=== PATIENT | female | born 1940 | race Caucasian/White ===

== ENCOUNTER 2016-10-02 18:10 | Inpatient (IN) | payer OTHER ==
[~2016-10-02 18:10] MED LIST: Etomidate* 2 MG/ML 20 ML VIAL (40 MG) ONE; Midazolam* 1 MG/ML 10 ML VIAL (10 MG) ONE
[2016-10-02] MEDS ORDERED: NS 0.9% 1000 ML* 2,000 ML IV ONE (18:13)
[2016-10-02] MEDS ORDERED: Aspirin Low Dose CHEW TAB* 81 MG PO ONE (18:13)
[2016-10-02] MEDS ORDERED: Midazolam* 1 MG/ML 5 ML VIAL (5 MG) ONE ×2 (18:20→19:32)
[2016-10-02 18:27] LABS: Hematocrit 42 % (35-47); Hemoglobin 13.2 g/dl (12.0-16.0); Mean Corpuscular HGB Conc 32 g/dl (31-36); Mean Corpuscular Hemoglobin 31 pg (27-31); Mean Corpuscular Volume 96 fL (80-97); Mean Platelet Volume 8 um3 (7.4-10.4); Red Blood Count 4.34 10^6/ul (4.0-5.4); Red Cell Distribution Width 15 % (10.5-15); White Blood Count 9.2 10^3/ul (3.5-10.8)
[2016-10-02 18:28] LABS: Add Diff/Slide Review? Slide Review Added; Comments Flag Yes
[2016-10-02] MEDS ORDERED: Norepinephrine 16MCG/ML IVPRE* 4,000 MCG/250 ML BAG IV ONE ×2 (18:30→20:34)
[2016-10-02 18:44] LABS: Albumin 3.8 g/dL (3.2-5.2); Calcium 9.3 mg/dL (8.6-10.3); EGFR African American 69.7 (>60); EGFR Non-African American 54.2 (>60); Globulin 2.9 g/dL (2-4); Total Bilirubin 0.4 mg/dL (0.2-1.0); Total Protein 6.7 g/dL (6.4-8.9)
[2016-10-02 18:45] LABS: Eosinophils % 1 % (0-6); Immature Granulocytes 7 % (0-9); Metamyelocytes % 1 % (0-2); Neutrophil % 43 % (38-83); RBC Morphology Normal (Normal)
[2016-10-02 18:49] LABS: Potassium 3.9 mmol/L (3.5-5.0)
[2016-10-02 19:10] LABS: FIO2 100; Resp Rate 12; Ventilator Volume 500
[2016-10-02 19:13] LABS: PCO2 Arterial 44 mmHg (35-45)
[2016-10-02 19:29] LABS: T4 5.12 mcg/mL (6.09-12.23); TSH (Thyroid Stimulating Horm) 6.19 mcIU/mL (0.34-5.60)
[2016-10-02] MEDS ORDERED: Sodium Bicarbonate 8.4%* 50 ML SYRINGE ONE (19:33)
[2016-10-02] MEDS ORDERED: Ondansetron INJ* 2 MG/ML VIAL IV PRN (19:43)
[2016-10-02] MEDS ORDERED: Acetaminophen TAB* 325 MG PO PRN (19:43)
[2016-10-02] MEDS ORDERED: Al Hydrox/Mg Hydrox/Simet LIQ* 30 ML UDC PO PRN (19:43)
[2016-10-02] MEDS ORDERED: Midazolam* 1 MG/ML 5 ML VIAL (5 MG) IV PRN (19:45)
[2016-10-02] MEDS ORDERED: fentaNYL* 50 MCG/ML 2 ML VIAL (100 MCG VIAL) IV SLOW PU PRN ×2 (19:45→23:09)
[2016-10-02] MEDS ORDERED: Sodium Bicarbonate 8.4% IV* 50 ML VIAL IV ONE (19:51)
[2016-10-02] MEDS ORDERED: Propofol* 100 ML IV SCH (20:00)
--- NOTE | 2016-10-02 20:03 | RAD ---
INDICATION: Unresponsive COMPARISON: None. TECHNIQUE: Single AP portable view of the chest was obtained. FINDINGS: Image quality is compromised due to the relative inferiority of a portable chest x-ray. The endotracheal tube is located approximately 4.3 cm above the maureen. The tip of the gastric tube is seen below the level of the diaphragm overlying the gastric fundus. The heart and mediastinum exhibit normal size and contour. The pulmonary vasculature is indistinct and mildly engorged. The lungs are grossly clear. There is no evidence of a large pleural effusion. Visualized bones are normal for the patient's age. IMPRESSION: 1. Mildly engorged pulmonary vasculature could be seen in the setting of cardiogenic pulmonary edema. 2. Lines and tubes appear to be appropriately positioned as described above.
[2016-10-02] MEDS ORDERED: EPINEPHrine SYR 0.1 MG/ML* (1:10,000) SYRINGE ONE (20:06)
[2016-10-02] MEDS ORDERED: Amiodarone 150 MG IVPREMIX* 150 MG/100 ML BAG IV ONE (20:18)
[2016-10-02] MEDS ORDERED: Amiodarone 360 MG IVPREMIX* 360 MG/200 ML BAG IV ONE (20:35)
[2016-10-02 20:45] LABS: FIO2 50; Resp Rate 16; Ventilator Volume 500
[2016-10-02 20:46] LABS: Hematocrit 42 % (35-47); Hemoglobin 13.2 g/dl (12.0-16.0); Mean Corpuscular HGB Conc 31 g/dl (31-36); Mean Corpuscular Hemoglobin 30 pg (27-31); Mean Corpuscular Volume 95 fL (80-97); Mean Platelet Volume 8 um3 (7.4-10.4); Red Blood Count 4.46 10^6/ul (4.0-5.4); Red Cell Distribution Width 14 % (10.5-15); White Blood Count 23.8 10^3/ul (3.5-10.8)
--- NOTE | 2016-10-02 20:51 | ED ---
Miguel Antoine Benjamin, scribed for Jose Diallo MD on 10/02/16 at 1838 . Cardiac Resuscitation - HPI Summary HPI Summary: 76yo female BIBA for ABC alert. Pt was dining out at [facility] and choked on food. 911 dispatch called time 17:36, EMS arrived at scene 17:42. ED arrival time 18:05. Per EMS, Heimlich was attempted at scene prior to EMS arrival. Per EMS, pt did have a pulse at scene. Pt was arrived unresponsive, bagged, on air, asystolic, with pulse of 75. Per old EMR records, pt has hx of CVA and left brain aneurysm surgery. LEVEL 5 CAVEAT ABC alert. - History of Current Complaint Stated Complaint: ABC Hx Obtained From: EMS, Medical Records Onset/Duration: Minutes/Hours: - 1735 Arrest Witnessed: Yes Down-time Before Basic Life Support Initiated: Down-time before BLS initiated: - approximately 5 minutes Down-time Before Advanced Life Support Initiated: Down-time before ALS initiated : - approximately 5 minutes - Prehospital Findings Circulation/Rhythm: Asystole Disability/Neurologic: Unresponsive - Prehospital Intervention Airway: Heimlich Maneuver - at scene prior to EMS arrival Breathing: Oxygen-Bag - by EMS - Past Medical History Past Medical History: Unobtainable Due to Extremis, Other: - Per old EMR: CVA, left brain aneurysm surgery - Family History Family History: Unobtainable Due to Extremis - Social History Social History: Unobtainable Due to Extremis - Review of Systems Review of Systems: Unobtainable Due to Extremis Physical Examination - Physical Examination Completion Of Physical Exam Limited Due To: Extremis Procedures - Intubation Intubation Method: orotracheal Tube Size (cm): 7.5 Medications: Versed Breath Sounds after Intubation: equal Intubation Complications: no complications Post Intubation Xray: Yes - ET TUBE IN PLACE Diagnostics - Vital Signs Vital Signs Pulse Resp BP Pulse Ox 10/02/16 19:03 99 118/90 10/02/16 18:48 100 10/02/16 18:23 154 19 73/55 98 - Laboratory Lab Results: Lab Results 10/02/16 10/02/16 10/02/16 Range/Units 18:20 18:20 18:20 WBC 9.2 (3.5-10.8) 10^3/ul RBC 4.34 (4.0-5.4) 10^6/ul Hgb 13.2 (12.0-16.0) g/dl Hct 42 (35-47) % MCV 96 (80-97) fL MCH 31 (27-31) pg MCHC 32 (31-36) g/dl RDW 15 (10.5-15) % Plt Count 298 (150-450) 10^3/ul MPV 8 (7.4-10.4) um3 Immature Gran % (Auto) 7 (0-9) % Neut % (Auto) 50.5 (38-83) % Lymph % (Auto) 39.2 (25-47) % [place] % (Auto) 8.0 (1-9) % Eos % (Auto) 1.6 (0-6) % Baso % (Auto) 0.7 (0-2) % Absolute Neuts (auto) 4.6 (1.5-7.7) 10^3/ul Absolute Lymphs (auto) 3.6 (1.0-4.8) 10^3/ul Absolute Monos (auto) 0.7 (0-0.8) 10^3/ul Absolute Eos (auto) 0.1 (0-0.6) 10^3/ul Absolute Basos (auto) 0.1 (0-0.2) 10^3/ul Absolute Nucleated RBC 0.01 10^3/ul Neutrophils % 43 (38-83) % Band Neutrophils % 6 (0-8) % Lymphocytes % 41 (25-47) % Monocytes % 8 (0-13) % Eosinophils % 1 (0-6) % Metamyelocytes % 1 (0-2) % Nucleated RBC % 0.1 Normal RBC Morphology Normal (Normal) INR (Anticoag Therapy) (0.89-1.11) Patient Temperature ABG pH (7.35-7.45) ABG pCO2 (35-45) mmHg ABG pO2 (80-100) mmHg ABG HCO3 (19-31) mmol/L ABG O2 Saturation (95-98) % ABG Base Excess (-2.0-2.0) Respiration Rate Ventilator Type Vent Mode FiO2 Inspiratory Time PEEP Pressure Support Pressure Control EPAP IPAP BiPAP Sodium 136 (133-145) mmol/L Potassium 3.9 (3.5-5.0) mmol/L Chloride 106 (101-111) mmol/L Carbon Dioxide 15 L (22-32) mmol/L Anion Gap 15 H (2-11) mmol/L BUN 19 (6-24) mg/dL Creatinine 1.00 H (0.51-0.95) mg/dL Est GFR ( Amer) 69.7 (>60) Est GFR (Non-Af Amer) 54.2 (>60) BUN/Creatinine Ratio 19.0 (8-20) Glucose 255 H (70-100) mg/dL Lactic Acid 8.1 H* (0.5-2.0) mmol/L Calcium 9.3 (8.6-10.3) mg/dL Magnesium 2.0 (1.9-2.7) mg/dL Total Bilirubin 0.40 (0.2-1.0) mg/dL AST 62 H (13-39) U/L ALT 65 H (7-52) U/L Alkaline Phosphatase 72 (34-104) U/L Total Creatine Kinase 44 (10-223) U/L CK-MB (CK-2) 1.2 (0.6-6.3) ng/mL Myoglobin 53.0 (14.3-65.8) ng/mL Troponin I 0.00 (<0.04) ng/mL B-Natriuretic Peptide ( - 100) pg/mL Total Protein 6.7 (6.4-8.9) g/dL Albumin 3.8 (3.2-5.2) g/dL Globulin 2.9 (2-4) g/dL Albumin/Globulin Ratio 1.3 (1-3) TSH 6.19 H (0.34-5.60) mcIU/mL Thyroxine (T4) 5.12 L (6.09-12.23) mcg/mL 10/02/16 10/02/16 10/02/16 Range/Units 18:20 18:20 18:55 WBC (3.5-10.8) 10^3/ul RBC (4.0-5.4) 10^6/ul Hgb (12.0-16.0) g/dl Hct (35-47) % MCV (80-97) fL MCH (27-31) pg MCHC (31-36) g/dl RDW (10.5-15) % Plt Count (150-450) 10^3/ul MPV (7.4-10.4) um3 Immature Gran % (Auto) (0-9) % Neut % (Auto) (38-83) % Lymph % (Auto) (25-47) % [place] % (Auto) (1-9) % Eos % (Auto) (0-6) % Baso % (Auto) (0-2) % Absolute Neuts (auto) (1.5-7.7) 10^3/ul Absolute Lymphs (auto) (1.0-4.8) 10^3/ul Absolute Monos (auto) (0-0.8) 10^3/ul Absolute Eos (auto) (0-0.6) 10^3/ul Absolute Basos (auto) (0-0.2) 10^3/ul Absolute Nucleated RBC 10^3/ul Neutrophils % (38-83) % Band Neutrophils % (0-8) % Lymphocytes % (25-47) % Monocytes % (0-13) % Eosinophils % (0-6) % Metamyelocytes % (0-2) % Nucleated RBC % Normal RBC Morphology (Normal) INR (Anticoag Therapy) 0.96 (0.89-1.11) Patient Temperature Not Reportable ABG pH 7.13 L* (7.35-7.45) ABG pCO2 44 (35-45) mmHg ABG pO2 276 H (80-100) mmHg ABG HCO3 14.0 L (19-31) mmol/L ABG O2 Saturation 99.7 H (95-98) % ABG Base Excess -14.0 L (-2.0-2.0) Respiration Rate 12 Ventilator Type 500 Vent Mode cmv FiO2 100 Inspiratory Time Not Reportable PEEP 5 Pressure Support Not Reportable Pressure Control Not Reportable EPAP Not Reportable IPAP Not Reportable BiPAP Not Reportable Sodium (133-145) mmol/L Potassium (3.5-5.0) mmol/L Chloride (101-111) mmol/L Carbon Dioxide (22-32) mmol/L Anion Gap (2-11) mmol/L BUN (6-24) mg/dL Creatinine (0.51-0.95) mg/dL Est GFR ( Amer) (>60) Est GFR (Non-Af Amer) (>60) BUN/Creatinine Ratio (8-20) Glucose (70-100) mg/dL Lactic Acid (0.5-2.0) mmol/L Calcium (8.6-10.3) mg/dL Magnesium (1.9-2.7) mg/dL Total Bilirubin (0.2-1.0) mg/dL AST (13-39) U/L ALT (7-52) U/L Alkaline Phosphatase (34-104) U/L Total Creatine Kinase (10-223) U/L CK-MB (CK-2) (0.6-6.3) ng/mL Myoglobin (14.3-65.8) ng/mL Troponin I (<0.04) ng/mL B-Natriuretic Peptide 66 ( - 100) pg/mL Total Protein (6.4-8.9) g/dL Albumin (3.2-5.2) g/dL Globulin (2-4) g/dL Albumin/Globulin Ratio (1-3) TSH (0.34-5.60) mcIU/mL Thyroxine (T4) (6.09-12.23) mcg/mL Result Diagrams: 10/02/16 20:20 10/02/16 18:20 Lab Statement: Any lab studies that have been ordered have been reviewed, and results considered in the medical decision making process. - Radiology CXR Xray Interpretation: Positive (See Comments) - IMPRESSION: 1. Mildly engorged pulmonary vasculature could be seen in the setting of cardiogenic pulmonary edema. 2. Lines and tubes appear to be appropriately positioned as described above. Radiology Interpretation Completed By: Radiologist - EKG 1810. Cardiac Rate: Tachycardia - 156bpm EKG Rhythm: Atrial Fibrillation - rapid atrial fibrillation Cardiac Resus. Course/Dx - Course Course Of Treatment: PATIENT HAD NON REACTIVE PUPILS AND WAS NON RESPONSIVE TO VOICE UPON ARRIVAL. GCS 6. INTUBATED WITH 7.5 ET TUBE BY MYSELF. AMIODORONE 150MG IV GIVEN DUE TO RAPID AFIB. LOW BPS PERSISTED. TREATMENT CONSISTED OF IVF AND LEVOPHED. SEDATION MAINTAINED WITH VERSED OR DIPROVAN. DISCUSSED WITH FAMILY. CENTRAL LINE PLACED BY DR MURRAY. ADMITTED TO HOSPITALIST IN CRITICAL CONDITION. - Diagnoses Provider Diagnoses: CARDIAC ARREST CHOKING EPISODE RECOVERY - Critical Care Time Critical Care Time: 30-74 min Discharge - Discharge Plan Condition: Critical Disposition: ADMITTED TO [facility] The documentation as recorded by the Miguel glass Benjamin accurately reflects the service I personally performed and the decisions made by me, Jose Diallo MD.
[2016-10-02 20:54] LABS: PCO2 Arterial 60 mmHg (35-45)
[2016-10-02 20:57] LABS: BUN/Creatinine Ratio 19.5 (8-20); Calcium 8.1 mg/dL (8.6-10.3); EGFR African American 81.9 (>60); EGFR Non-African American 63.6 (>60); Phosphorus 2.4 mg/dL (2.5-5.0); Potassium 3.2 mmol/L (3.5-5.0)
[2016-10-02 21:00] LABS: Troponin I 0.03 ng/mL (<0.04)
--- NOTE | 2016-10-02 21:10 | RAD ---
INDICATION: Adjustment of endotracheal tube COMPARISON: Similar chest x-ray acquired at 1837 hours TECHNIQUE: Single AP portable view of the chest was obtained at 1936 hours. FINDINGS: Image quality is compromised due to the relative inferiority of a portable chest x-ray. The endotracheal tube is again seen measuring approximately 4.6 cm above the maureen. The gastric tube that was previously identified at the level of the gastric fundus now overlies the right of midline lower mediastinum. There is been worsening reticulonodular density overlying the bilateral lungs more severely affecting the left lung and the right. The pulmonary vasculature continues to appear engorged and indistinct. IMPRESSION: 1. The gastric tube tip is now seen at the right of midline lower mediastinum above the diaphragm, previously below the diaphragm overlying the gastric fundus. I recommend advancing the gastric tube at least 15 cm and correlating to gastric auscultation. 2. Appearance consisting with worsening pulmonary edema relative to the previous chest x-ray with persistent vascular engorgement.
[2016-10-02] MEDS ORDERED: fentaNYL* 50 MCG/ML 2 ML VIAL (100 MCG VIAL) ONE (22:25)
[2016-10-02] MEDS ORDERED: Albumin Human 5%* 250 ML BTL IV ONE (22:44)
[2016-10-02] MEDS: Norepinephrine 16MCG/ML IVPRE* 4,000 MCG/250 ML BAG IV SCH (22:44)
[2016-10-02] MEDS: Albumin Human 5%* 250 ML BTL IV SCH (22:45)
[2016-10-02] MEDS ORDERED: fentaNYL* 50 MCG/ML 2 ML VIAL (100 MCG VIAL) IV SLOW PU ONE (23:04)
[2016-10-02] MEDS: Magnesium Sulf 4 GM/100 ML IV* 4,000 MG/100 ML BAG IVPB ONE (23:13)
[2016-10-02] MEDS ORDERED: Acetaminophen IV 1GM/100ML * 1,000 MG in PREMIX* 100 ML IVPB ONE (23:23)
[2016-10-02] MEDS ORDERED: Acetaminophen IV 1GM/100ML * 1,000 MG in PREMIX* 0 ML IVPB ONE (23:23)
--- NOTE | 2016-10-02 23:29 | CONSULT ---
Consult Consult: CRITICAL CARE MEDICINE DATE: 10/02/16 TIME: 2229 REFERRING PROVIDER: Pierce REASON/CHIEF COMPLAINT: [facility]CA HISTORY OF PRESENT ILLNESS: 76 F with h/o cerebral aneurysm s/[facility] with only residual Left hemiparasthesia, HTN who was at dinner and started choking. [place] choking sign and staffing rn attempted Heimlich. Pt "passed out" according to family and lower to the floor on EMS arrival. CPR initialed. Food removed orally and then advance airway placed. ROSC at scene. In ED pt with myoclonus and coma. Admitted to ICU. Resuscitation efforts continued with escalating levophed. bicarb given. noted afib rvr. amio given. vent adjusted but pt with subsequent pea arrest. ROSC in 8 min with ACLS. Adjustments made. REVIEW OF SYSTEMS: As per HPI. Recent cellulitis on abx maybe a month ago, otherwise neg. PAST MEDICAL HISTORY: As per HPI. MEDICATIONS: Reviewed but unconfirmed. ALLERGIES: NKDA SOCIAL HISTORY: Reviewed. . FAMILY HISTORY: Noncontributory at present. PHYSICAL EXAM: Vital Signs: Reviewed. Afib with HR 90-110. levo at 40. Neurologic: coma. pupils eq and sluggish but reactive 4mm to 2mm. +corneals. + cough. no gag at time. myoclonus bl HEENT: ett in place with brownish secretions. Cardiovascular: distant, irr, irr, no m Respiratory: coarse bl with mild rales Abdomen: obese, doft, no masses Extremities: cool but not cold, not cyanotic Access: R fem tlc LABS: Reviewed. IMAGING: Reviewed. MEDICATIONS: Reviewed. ASSESSMENT: 76 F OHCA after witnessed choking. Post cardiac arrest coma syndrome Acute hypoxic resp failure Cardiogenic shock post hypoxia Acute pulm edema post arrest Acute aspiration pneumonitis Lactic acidosis Impending components of atn and ischemic hepatitis post shock PLAN: Initial plan for euthermia, however pt still with considerable encephalopathy and myoclonus and given her acute onset of hypoxic illness and PEA, with ROSC and seeming end organ improving balance, with temp on ext cooling measures already climbing and now 36.5C, with all her concerns, we feel it is in her best to aim for the best public health informatician score and hopeful recovery with TTM of 33C for 24hours and then slow rewarming and reanimation. place internal catheter for this purpose. D/w with family at bedside. HOB >30degrees. Neurologic: sedation with propofol. try to limit myoclonus with keppra as well and continued both. prn fent. limit fever as above and avoid cytokine rebound. IV tylenol if needed. trying to avoid paralytics but follow shivering. eval in am for eeg benefits. Cardiovascular: Better perfusion state now with calming of cardiac outpt needs, and again reasons for decreasing her o2 consumption as above. Can eval with echo tomorrow. Afib is calming with less sympathetic needs now too. on amio and can hold off. hopefully spont conversion. maintain with levophed and target MAP >70 currently. Respiratory: Adjusted to APRV now. wean O2 to maintain sat >94%. f/u abgs. at risk for lung injury post aspiration and cpr. f/u cxr in am. lung protection. No indications for bronch needs. Gastrointestinal: NPO currently; sup. f/u lfts. Renal/Metabolic: watch for atn. volume resuscitation ongoing. keep NA high end but will try to avoid Cl acidosis but there will be a component. f/u clearance. Infectious Disease: given a dose zosyn in ED. Can hold off on further currently , however low thereshold given plans for ttm 33C. Hematology: f/u counts and coags with dynamics. hsq. Endocrine: given her dyanmics and some benefits in this setting from steroids, will give stress dose given her levo needs as well. Musculoskeletal: progressive mobility when condition permits, avoid skin breakdown. Psych/Social: family updated at length Supportive and preventative care as ordered. SUP: ppi VTE prophylaxis: heparin Rivera catheter given critical illness, monitoring needs for accurate assessment of KATARINA and KDIGO criteria for critically ill patients and to avoid potential harms of urinary retention, skin breakdown/ulcers. Disposition: ICU Code Status: Full Critical Care Time: 75min ([id number]), exl procedures FLisa Hess DO
[2016-10-02] MEDS ORDERED: levETIRAcetam 500 MG IVPREMIX* 500 MG/100 ML BAG IV ONE (23:45)
--- NOTE | 2016-10-03 00:05 | HP ---
CC: Dr. Gibson, [facility] * HISTORY AND PHYSICAL: DATE OF ADMISSION: 10/02/16 TIME OF EVALUATION: 1929. PRIMARY CARE PHYSICIAN: Dr. Gibsno at [facility]. CHIEF COMPLAINT: Cardiac arrest. HISTORY OF PRESENT ILLNESS: This is a 76-year-old female with past medical history of a CVA, who presented to the emergency room via EMS after having a choking episode at [facility]. Per story from ER is that the patient choked on her steak at [facility]. They were unsuccessful at the [facility]. EMS was called, CPR began. The patient was pulseless for 5 minutes prior to EMS arrival. EMS was able to get some meat out. She began having spontaneous respirations. When she arrived to the emergency room, the ER staff said her eyes were open and she was unresponsive. She had sonorous breath sounds. At that point, they tubed her. She went into rapid AFib and became hypotensive. She was given amiodarone bolus, several liters of normal saline and started on Levophed. She was promptly brought up to the ICU. On arrival to the ICU, she was having myoclonic jerking, which did respond to Versed. She received several more amps of bicarb. Shortly after arrival to the ICU patient went into asystole and CPR was resumed. The patient received epi and more bicarb. Subsequently went into PEA and about 7 to 8 minutes later, she had a return of spontaneous circulation. She remained in AFib with a lot of ectopy, and an Amiodarone drip was started, and she was continued on Levophed drip. She is still having intermittent myoclonic jerking episodes. Her , Florin, her [id number], family friends, roma are all in the waiting room and at the bedside during the cardiac arrest and have been updated frequently of her critical condition. Dr. Hess has been updated frequently as well. Otherwise , unable to obtain a review of systems due to the patient being unresponsive. PAST MEDICAL HISTORY: 1. is not entirely clear on her medical history, states that she did have 2 strokes in the past with residual left-sided paresthesias. 2. History of hypertension. MEDICATIONS: Unknown. ALLERGIES: Unknown. FAMILY HISTORY: Unable to be obtained. SOCIAL HISTORY: Per the family, patient ambulates independently. 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. She lives with her . She has a daughter a physical therapist, who is in [place], who is currently on her way here. She quit smoking 2 months ago. At that time, she was smoking about a pack per week. Occasional alcohol use. Code status is full code. When asked who the designated healthcare proxy is, they were unsure. They thought it would the and the daughter, Dania, who will be arriving here shortly. REVIEW OF SYSTEMS: Unable to obtain due to the patient being unresponsive. PHYSICAL EXAMINATION GENERAL: The patient unresponsive with intermittent myoclonic jerking. VITAL SIGNS: Temp is 35, pulse rate 99, respiratory rate on the vent is 16, oxygen saturation is 100% on mechanical ventilation, blood pressure 118/90. HEENT: The patient with resolved epistaxis bilaterally. Oropharynx: ET tube is in place. Head normocephalic. Pupils are 2 mm and sluggish. No corneal reflex. NECK: Supple. RESPIRATORY: Diminished breath sounds. No wheezing, rhonchi, or rales. CARDIAC: Irregular rate and rhythm. Soft systolic murmur heard. ABDOMEN: Mildly firm, nondistended. EXTREMITIES: Extremities are cool. No edema. +1 DPs bilaterally. NEUROLOGIC: The patient is unresponsive. As mentioned, no corneal reflex. No spontaneous movement of her extremities. DIAGNOSTIC STUDIES/LAB DATA: White count 9.2, hemoglobin 13.2, hematocrit 42, platelets 298. INR 0.96. Blood gas shortly after getting intubated is pH of 7.13, pCO2 44, pO2 of 276. Sodium 136, potassium 3.9, chloride 106, bicarb 15, BUN 19, creatinine 1, glucose 255, lactic acid 8, AST 62, ALT 65. Troponin of 0. TSH 6.19, T4 5.12. Chest x-ray showed mildly engorged pulmonary vasculature, could be seen in the setting of cardiogenic pulmonary edema. Lines and tubes appear to be appropriately positioned as described. EKG shows rapid atrial fibrillation. Repeat EKG post code shows ST depression. ASSESSMENT: This is a 76-year-old female with a past medical history of cerebrovascular accident, who was independent of her ADLs when she had a choking episode at the [employer] when she became unresponsive, unsuccessful with Heimlich, and was down for 5 minutes prior to EMS arrival. After they did get the meat out, she was tubed upon arrival to the ED. In the ICU. patient subsequently had an asystolic cardiac arrest, return of spontaneous circulation after about 7 to 8 minutes. I spoke with Dr. Hess several times regarding management for this patient. The goal is to keep her temperature less than 36. We will keep her on Levophed and continue aggressive IV fluid hydration. We will continue giving her bicarb and follow her venous pH. Continue propofol, Versed, and fentanyl as needed. We will give a gram of Keppra. If she becomes more stable, we will do a head CT. I am awaiting repeat labs post cardiac arrest and repeat chest x-ray. The family has been routinely updated. They are aware that she may not survive and she has likely suffered significant hypoxic brain injury. The family understands, they are waiting for the daughter to arrive and I will update her as well when she arrives. PATIENT TIME: Greater than 120 minutes were spent during the history and physical, more than half the time was spent in direct patient contact. This was a critical care time in the setting of critically ill patient. [id number]/[facility] #: [id number] ANGELO
[2016-10-03] MEDS: Propofol* 100 ML IV SCH ×8 (00:26→21:39)
[2016-10-03] MEDS: Norepinephrine 16MCG/ML IVPRE* 4,000 MCG/250 ML BAG IV SCH ×5 (00:37→19:24)
[2016-10-03] MEDS: Albumin Human 5%* 250 ML BTL IV SCH ×3 (01:10→02:14)
[2016-10-03 01:24] LABS: Hematocrit 40 % (35-47); Hemoglobin 12.9 g/dl (12.0-16.0); Mean Corpuscular HGB Conc 32 g/dl (31-36); Mean Corpuscular Hemoglobin 30 pg (27-31); Mean Corpuscular Volume 95 fL (80-97); Mean Platelet Volume 9 um3 (7.4-10.4); Red Blood Count 4.25 10^6/ul (4.0-5.4); Red Cell Distribution Width 14 % (10.5-15); White Blood Count 14.4 10^3/ul (3.5-10.8)
--- NOTE | 2016-10-03 01:24 | PN ---
Progress Note - Progress Note Date of Service: 10/03/16 Note: CRITICAL CARE MEDICINE PROCEDURE NOTE DATE: 10/03/16 TIME: 0005 SERVICE: Critical Care Medicine LOCATION OF PROCEDURE: ICU PROCEDURE: ICY catheter Central line insertion PROCEDURALIST: Dr. Hess Consent obtain: Yes Time out held: Yes INDICATION: Post cardiac arrest coma syndrome and need for TTM 33C PROCEDURE: Oxygenation maintained and vitals monitored. Patient in supine position. SITE: LEFT Femoral (Right femoral with TLC in use) Site preparation with chlorhexidine locally. Full sterile drape, gown, hat, mask, gloves. 4ml 1% Lidocaine utilized at insertion site. Standard sterile Seldinger technique utilized via ultrasound guidance]and catheter was inserted to 35cm and sutured in place. Good blood return from all three ports. Minimal blood loss, but some oozing around catheter. Site dressed with tegaderm. Patient otherwise tolerated well. Frida Hess, DO
[2016-10-03 01:26] LABS: Add Diff/Slide Review? Slide Review Added; Comments Flag Yes
--- NOTE | 2016-10-03 01:26 | PN ---
Progress Note - Progress Note Date of Service: 10/03/16 Note: CRITICAL CARE MEDICINE PROCEDURE NOTE DATE: 10/03/16 TIME: 24 SERVICE: Critical Care Medicine LOCATION OF PROCEDURE: ICU PROCEDURE: ICY catheter Central line insertion PROCEDURALIST: Dr. Hess Consent obtain: Yes Time out held: Yes INDICATION: Post cardiac arrest coma syndrome, cardiogenic shock needing hemodyanmic monitoring. PROCEDURE: Oxygenation maintained and vitals monitored. Patient in supine position. SITE: LEFT Femoral artery Site preparation with chlorhexidine locally. Full sterile drape, gown, hat, mask, gloves. 3ml 1% Lidocaine utilized at insertion site. Standard sterile Seldinger technique utilized via ultrasound guidance, 2 sticks required, and then catheter was inserted to 15cm and sutured in place. Good blood return and wave form. Minimal blood loss. Site dressed with tegaderm. Patient otherwise tolerated well. Frida Hess DO
[2016-10-03 01:35] LABS: Albumin 3.4 g/dL (3.2-5.2); BUN/Creatinine Ratio 20.5 (8-20); Calcium 7.4 mg/dL (8.6-10.3); EGFR African American 80.8 (>60); EGFR Non-African American 62.8 (>60); Globulin 2.2 g/dL (2-4); Potassium 3.5 mmol/L (3.5-5.0); Total Bilirubin 0.6 mg/dL (0.2-1.0); Total Protein 5.6 g/dL (6.4-8.9)
[2016-10-03 01:43] LABS: Venous Bicarbonate HCO3 18.4 mmol/L (24-28)
[2016-10-03] MEDS ORDERED: fentaNYL* 50 MCG/ML 2 ML VIAL (100 MCG VIAL) IV SLOW PU ONE (02:00)
[2016-10-03 02:01] LABS: PCO2 Arterial 37 mmHg (35-45)
[2016-10-03] MEDS: fentaNYL PCA* 20 ML PCA SCH ×2 (02:15→10:00)
[2016-10-03] MEDS: NS 0.9% 1000 ML* 1,000 ML IV SCH ×4 (02:19→19:25)
[2016-10-03] MEDS: Heparin VIAL(*) 5000 UNITS/ML VIAL (FIVE THOUSAND) SUBCUT SCH ×4 (02:24→22:00)
[2016-10-03] MEDS: Magnesium Sulf 4 GM/100 ML IV* 4,000 MG/100 ML BAG IVPB ONE (02:27)
[2016-10-03] MEDS: Chlorhexidine MOUTHWASH 0.12%* 15 ML UDC TOPICAL SCH ×6 (02:29→20:16)
[2016-10-03] MEDS ORDERED: Perflutren Lipid Microsphere* 3 ML VIAL ONE (07:45)
--- NOTE | 2016-10-03 08:11 | ED ---
Giulia Antoine Alfonso, scribed for Mc Rodriguez MD on 10/02/16 at 1908 . Progress - Progress Note Progress Note: I was asked by Dr. Diallo to place a central line. Central Line Placement Procedure note: Procedure Note: Central Venous Catheter Insertion- Right Femoral vein Indication: Hypotension [place] Protocol: a timeout was performed and the correct patient and site were verified Consent: Obtained The patient was placed in Trendelenburg. Patient and all elements of maximal sterile barrier technique (MSBT) were used. Anesthesia was obtained with local infiltration of 3 ml 1% lidocaine. Hand hygiene was performed prior to procedure. Chlorhexidine used to prep the skin and dried for 2 minutes prior to skin puncture. Traffic was limited during the procedure. Full barrier precaution utilized. A 7 khmer triple lumen catheter was placed using the Seldinger technique. All lines flushed and nancy nonpulsatile dark venous blood appropriately. The line was secured with sutures. A biopatch and dressing was placed over the site. The patient tolerated the procedure well. A post-line CXR was reviewed demonstrating the tip of the catheter in the SVC. Post-Procedure Diagnosis: Hypotension Complications: none Estimated Blood Loss: minimal Course/Dx - Diagnoses Provider Diagnoses: CARDIAC ARREST CHOKING EPISODE RECOVERY The documentation as recorded by the Giulia glass Alfonso accurately reflects the service I personally performed and the decisions made by Michael negrete Walter, MD.
[2016-10-03 08:27] LABS: Patient Temp ABG 33.3
[2016-10-03 08:31] LABS: PCO2 Arterial 30 mmHg (35-45)
[2016-10-03] MEDS ORDERED: Acetaminophen IV 1GM/100ML * 1,000 MG in PREMIX* 0 ML IVPB ONE (09:00)
[2016-10-03 09:09] LABS: Hematocrit 36 % (35-47); Hemoglobin 11.6 g/dl (12.0-16.0); Mean Corpuscular HGB Conc 32 g/dl (31-36); Mean Corpuscular Hemoglobin 30 pg (27-31); Mean Corpuscular Volume 94 fL (80-97); Mean Platelet Volume 8 um3 (7.4-10.4); Red Blood Count 3.87 10^6/ul (4.0-5.4); Red Cell Distribution Width 15 % (10.5-15); White Blood Count 11.9 10^3/ul (3.5-10.8)
[2016-10-03 09:26] LABS: BUN/Creatinine Ratio 18.9 (8-20); Calcium 7.6 mg/dL (8.6-10.3); EGFR Non-African American 57.5 (>60); Magnesium 2.3 mg/dL (1.9-2.7); Phosphorus 1.2 mg/dL (2.5-5.0); Potassium 3.2 mmol/L (3.5-5.0)
[2016-10-03 09:28] LABS: Troponin I 0.32 ng/mL (<0.04)
[2016-10-03] MEDS ORDERED: fentaNYL PCA* 20 ML PCA SCH (09:50)
[2016-10-03] MEDS ORDERED: Dextrose 50% Syringe 50 ML* 25 GM/50 ML SYRINGE IV PUSH PRN (09:57)
[2016-10-03] MEDS ORDERED: fentaNYL PCA* 20 ML ONE (09:58)
--- NOTE | 2016-10-03 10:09 | ECHO ---
Patient: ANGELA ALEXANDER [facility] Rec#: [id number] : 1940 Date: 10/03/2016 Age: 76y Height: 165.1 cm / 65.0 in Weight: 114.76 kg / 252.9 lbs Sex: F BSA: 2.19 Room#: ICU 8 Admit Date#: 10/02/2016 Type: Inpatient Referring: Krishan Hess Reading: Tresa Garay MD Putty Patcher: Rolanda HillRD,RDMS Transthoracic Echocardiogram Indication: Cardiac arrest BP: 118/67 HR: 40 Rhythm: Bradycardia Findings History: CVA, HTN, former smoker Technical Comments: The study is technically limited due to patient body habitus. The study is technically limited due to patient being intubated and on a ventilator. Completed 0940 Left Ventricle: The left ventricular chamber size is normal. Mild concentric left ventricular hypertrophy is observed. The estimated ejection fraction is 40-45%. Abnormal left ventricular diastolic filling is observed, consistent with impaired relaxation. Left Atrium: The left atrial chamber size is normal. Right Ventricle: The right ventricular cavity size is normal. The right ventricular global systolic function is moderately reduced.Definity imaging suggests severe RV dysfunction. Right Atrium: The right atrial cavity size is normal. Aortic Valve: There is no evidence of aortic valve thickening. Systolic excursion of the aortic valve is normal. There is a trace of aortic regurgitation. There is no evidence of aortic stenosis. Mitral Valve: The mitral valve leaflets appear normal. There is trace to mild mitral regurgitation. There is no evidence of mitral stenosis. Tricuspid Valve: The tricuspid valve leaflets are not thickened. There is trace tricuspid regurgitation. There is evidence of mild pulmonary hypertension. Pulmonic Valve: The pulmonic valve structure is not well visualized. Pericardium: There is no significant pericardial effusion. Aorta: The ascending aorta is not well visualized. The aortic arch is not well visualized. The aortic root is normal in size. Pulmonary Artery: The main pulmonary artery is not well visualized. Venous: Unable to accurately comment on the size collapsibility of the IVC as the patient in known to be on mechanical ventilation. Contrast: Definity was used to optimize study. A total of 3 ml was used Conclusions The study is technically limited due to patient body habitus and the patient is ventilated. Mild concentric left ventricular hypertrophy. The estimated ejection fraction is 40-45%, septum appears dyskinetic. Abnormal left ventricular diastolic filling is observed, consistent with impaired relaxation. The right ventricular global systolic function is moderately to severely reduced. There is a trace of aortic regurgitation. There is trace to mild mitral regurgitation. There is trace tricuspid regurgitation. There is evidence of mild pulmonary hypertension: 37 mmHg. No prior echo to compare. Measurements Name Value Normal Range RVDdMajor (2D) 2.8 cm (2.2 - 4.4) RAd ISD 4CH 3.7 cm (3.4 - 4.9) RA (A4C)W 2.9 cm (2.9 - 4.6) IVSd (2D) 1.3 cm (0.6 - 1) LVPWd (2D) 1.3 cm (0.6 - 1) LVIDd (2D) 3.3 cm (3.6 - 5.4) LVIDs (2D) 2.8 cm - Aortic Annulus 2.2 cm (1.4 - 2.6) Ao root diameter (2D) 3.2 cm (2.1 - 3.5) LAd ISD 4CH 5.1 cm (2.9 - 5.3) LA ISD 4CH W 4.5 cm (2.5 - 4.5) Name Value Normal Range LA ESV SP 4CH (A/L) 58.33 ml - LA ESV SP 4CH (MOD) 46.1 ml - Name Value Normal Range MV E-wave Vmax 0.5 m/sec - MV deceleration time 184 msec - MV A-wave Vmax 0.6 m/sec - MV E:A ratio 0.8 ratio - LV septal e' Vmax 0.04 m/sec - LV lateral e' Vmax 0.03 m/sec - LV E:e' septal ratio 12.5 ratio - LV E:e' lateral ratio 17 ratio - Name Value Normal Range AV Vmax 0.8 m/sec - AV VTI 26 cm - AV peak gradient 2.6 mmHg - AV mean gradient 1.7 mmHg - LVOT Vmax 0.7 m/sec - LVOT VTI 16.5 cm - LVOT peak gradient 2 mmHg - LVOT mean gradient 0.9 mmHg - Name Value Normal Range TR Vmax 2.7 m/sec - TR peak gradient 29 mmHg - RAP 8 mmHg - RVSP 37 mmHg - IVC diameter 2.8 cm -
[2016-10-03] MEDS ORDERED: Potassium Phosphate IV* 30 MMOLE in NS 0.9% 250 ML* 250 ML IVPB ONE (10:30)
--- NOTE | 2016-10-03 10:44 | PN ---
Progress Note - Progress Note Date of Service: 10/03/16 Note: CRITICAL CARE MEDICINE DATE: 10/03/16 TIME: 930 SUBJECTIVE: Patient seen and examined. PHYSICAL EXAM: Vital Signs: Reviewed. HR SB 40s. levo at 12. aprv Fio2 40% Neurologic: coma. pupils eq small 2mm sluggish to 1mm. neg corneals. neg cough , gag at time. no myoclonus HEENT: ett in place Cardiovascular: distant, reg Respiratory: coarse bl, aprv Abdomen: obese, soft, no masses Extremities: cool, no cyanotic Access: R fem tlc; left paola, icy cath LABS: Reviewed. IMAGING: Reviewed. MEDICATIONS: Reviewed. ASSESSMENT: 76 F OHCA after witnessed choking. Post cardiac arrest coma syndrome Acute hypoxic resp failure Cardiogenic shock post hypoxia Acute pulm edema post arrest Acute aspiration pneumonitis Lactic acidosis mild components of atn and ischemic hepatitis post shock PLAN: Neurologic: TTM 33C for 24h and slow rewarm. dec propofol slightly. no myoclonus. on keppra. spot eeg today. time. Cardiovascular: Better perfusion. keep ivf but less today. wean levophed with target MAP >70. mild troponin sec to demand. echo pending today Respiratory: Better with APRV; wean O2 to maintain sat >94%. abgs improved. cxr pending. lung protection. Gastrointestinal: NPO currently; sup. change to ogt. perhaps trophic feeds later today or at least dolores. Renal/Metabolic: Uout low but holding. f/u out. replete phos. k ok. Infectious Disease: no abx needs currently Hematology: counts and coags stable. hsq. Endocrine: stress dose steroids. Musculoskeletal: progressive mobility; avoid skin breakdown. Psych/Social: family updated at length Supportive and preventative care as ordered. SUP: ppi VTE prophylaxis: heparin Rivera catheter given critical illness, monitoring needs for accurate assessment of KATARINA and KDIGO criteria for critically ill patients and to avoid potential harms of urinary retention, skin breakdown/ulcers. Disposition: ICU Code Status: Full Critical Care Time: 60min Frida Hess DO
[2016-10-03] MEDS: Hydrocortisone INJ* 100 MG VIAL IV SCH ×2 (10:59→19:07)
[2016-10-03] MEDS: Insulin LISPRO* 1 UNITS UNIT SUBCUT SCH ×2 (13:20→19:05)
[2016-10-03] MEDS: Lansoprazole susp Kit 3 MG/ML (30 MG = 10 ML) G TUBE SCH (13:21)
--- NOTE | 2016-10-03 13:26 | RAD ---
Indication: Respiratory failure. Check orogastric and ET tubes. Comparison: 1936 hours October 02, 2016 Technique: Supine AP 1215 hours Report: Endotracheal tube tip 5.3 cm above the Tamia. Orogastric tube passes to the stomach and outside the [id number] caudally. Cardiomegaly. Prominent ill-defined central pulmonary vasculature with perihilar opacities. Diffuse prominence of interstitial markings. Grossly clear pleural spaces. IMPRESSION: 1. Pulmonary vascular congestion and interstitial edema with mild interval improvement. 2. Endotracheal tube could be advanced approximate 3 cm.
--- NOTE | 2016-10-03 22:14 | EEG ---
ELECTROENCEPHALOGRAPHY: DATE OF STUDY: DATE OF DICTATION: 10/03/16 PATIENT OF: Dr. Hess. CLINICAL PROBLEM: This is a 76-year-old woman being evaluated following a cardiac arrest, following choking with significant hypotension, and has had myoclonic jerks that responds to Versed. She had been asystolic. The patient is intubated and sedated. MEDICATIONS: Include: 1. Propofol drip. 2. Fentanyl drip. 3. She is also on Levophed. 4. Zofran. 5. Versed. 6. Maalox. 7. Keppra. 8. Humalog. 9. Hydrocortisone. 10. Lansoprazole. REPORT: Background cerebral activity consists of [id number] amplitude, primarily beta activity, but some admixed alpha, delta, and theta frequencies. Some generalized sharp and slow waves are noted that are not clearly associated with muscle movement artifact and occur in brief runs of up to a second with frequency ranging up to 4 to 5 Hz. Some of these bursts may be secondary to muscle artifact, but some are not clearly associated with muscle artifact. No focal abnormalities or major asymmetries of background are present. CLINICAL IMPRESSION: This sedated EEG is abnormal because of the presence of generalized discharges suggestive of a tendency towards generalized seizures may be secondary to the hypoxic ischemic insult this patient has had. Background has both beta activity, which may be secondary to medications the patient is receiving. The slowing that is noted on tracing may be secondary to medications or secondary to an underlying hypoxic ischemic insult. [id number]/[facility] #: [id number] [facility]
[2016-10-04] MEDS: Insulin LISPRO* 1 UNITS UNIT SUBCUT SCH ×5 (00:03→23:42)
[2016-10-04] MEDS: Chlorhexidine MOUTHWASH 0.12%* 15 ML UDC TOPICAL SCH ×7 (00:04→23:42)
[2016-10-04] MEDS: Propofol* 100 ML IV SCH ×7 (00:39→22:15)
[2016-10-04] MEDS: Hydrocortisone INJ* 100 MG VIAL IV SCH ×3 (01:52→18:26)
[2016-10-04] MEDS: NS 0.9% 1000 ML* 1,000 ML IV SCH (03:35)
[2016-10-04] MEDS: Heparin VIAL(*) 5000 UNITS/ML VIAL (FIVE THOUSAND) SUBCUT SCH ×3 (05:34→21:24)
[2016-10-04 06:05] LABS: FIO2 40
[2016-10-04 06:12] LABS: PCO2 Arterial 32 mmHg (35-45)
[2016-10-04 06:13] LABS: Hematocrit 35 % (35-47); Hemoglobin 11.3 g/dl (12.0-16.0); Mean Corpuscular HGB Conc 32 g/dl (31-36); Mean Corpuscular Hemoglobin 30 pg (27-31); Mean Corpuscular Volume 95 fL (80-97); Mean Platelet Volume 9 um3 (7.4-10.4); Red Blood Count 3.73 10^6/ul (4.0-5.4); Red Cell Distribution Width 15 % (10.5-15); White Blood Count 14.3 10^3/ul (3.5-10.8)
[2016-10-04 06:30] LABS: Albumin 3.1 g/dL (3.2-5.2); BUN/Creatinine Ratio 21.5 (8-20); Calcium 7.5 mg/dL (8.6-10.3); EGFR African American 91.5 (>60); EGFR Non-African American 71.1 (>60); Globulin 1.9 g/dL (2-4); Phosphorus 2.7 mg/dL (2.5-5.0); Potassium 3.8 mmol/L (3.5-5.0)
[2016-10-04] MEDS: Lansoprazole susp Kit 3 MG/ML (30 MG = 10 ML) G TUBE SCH (08:26)
[2016-10-04] MEDS ORDERED: Furosemide IV* 10 MG/ML VIAL (40 MG) IV SLOW PU ONE (10:17)
[2016-10-04] MEDS ORDERED: NS 0.9% 1000 ML* 1,000 ML IV SCH (10:19)
--- NOTE | 2016-10-04 10:54 | PN ---
Progress Note - Progress Note Date of Service: 10/04/16 Note: CRITICAL CARE MEDICINE DATE: 10/04/16 TIME: 1000 SUBJECTIVE: Patient seen and examined. PHYSICAL EXAM: Vital Signs: Reviewed. HR SB 40s. levo at 4. aprv Fio2 40% Neurologic: coma. pupils eq small 2mm sluggish to 1mm. neg corneals. neg cough , gag at time. supraorbital myoclonus HEENT: ett in place Cardiovascular: distant, reg Respiratory: coarse bl, aprv Abdomen: obese, soft, no masses Extremities: cool, +edema Access: R fem tlc; left paola, icy cath LABS: Reviewed. IMAGING: Reviewed. MEDICATIONS: Reviewed. ASSESSMENT: 76 F OHCA after witnessed choking. Post cardiac arrest coma syndrome Acute hypoxic resp failure Cardiogenic shock post hypoxia Acute pulm edema post arrest Acute aspiration pneumonitis Lactic acidosis mild components of atn and ischemic hepatitis post shock PLAN: Neurologic: TTM 35.5-36C today (currently 34C and warming). Will look for sedation holiday post re-warm. Myoclonus evident. Seiuzure prone on eeg. add valproic to keppra so we have room to hold prop. If myoclonus returns post re- warming and not responsive to AED would be an ominous sign. Can consider further imaging if indicated to support anoxic insult beyond that but no hurry as we need time. Cardiovascular: Perfusion stable. low dose levo and MAP much above 70. off ivf. one dose lasix today. RV dysfunction post arrest and with ppv. ?yasir as well. Respiratory: APRV; wean pressures today and hopeful for spont regulation. lung protection. Gastrointestinal: start tf today. sup Renal/Metabolic: f/u Uout and lytes. barragan Infectious Disease: no abx needs\ Hematology: counts and coags stable. hsq. Endocrine: stress dose steroids can taper off when off pressors. Musculoskeletal: progressive mobility as able; avoid skin breakdown. Psych/Social: family updated at length Supportive and preventative care as ordered. SUP: ppi VTE prophylaxis: heparin Barragan catheter given critical illness, monitoring needs for accurate assessment of KATARINA and KDIGO criteria for critically ill patients and to avoid potential harms of urinary retention, skin breakdown/ulcers. Disposition: ICU; prognosis looks poor Code Status: Full Critical Care Time: 50min Frida Hess DO
[2016-10-04] MEDS ORDERED: Midazolam* 1 MG/ML 2 ML VIAL (2 MG) IV PRN (11:01)
[2016-10-04] MEDS: Norepinephrine 16MCG/ML IVPRE* 4,000 MCG/250 ML BAG IV SCH ×2 (11:38→23:28)
[2016-10-04] MEDS ORDERED: LORazepam INJ* 2 MG/ML 1 ML VIAL ONE (14:22)
[2016-10-04] MEDS ORDERED: LORazepam INJ* 2 MG/ML 1 ML VIAL IV PUSH ONE (14:30)
[2016-10-04] MEDS ORDERED: fentaNYL PCA* 20 ML PCA SCH (15:40)
--- NOTE | 2016-10-04 15:46 | PN ---
Progress Note - Progress Note Date of Service: 10/04/16 Note: CRITICAL CARE MEDICINE DATE: 10/05/16 TIME: 1500 Not quite to goal temp yet today. Dyscongugate pupils with no reactivity now; neg corneals; And now off propofol for 3mins (and on keppra/valproic acid) she returned to b/l anoxic myoclonus. Ativan did not sascha. Propofol resumed. Family meeting today after. Discussed dx, prognosis, plans of care and options. They expressed understanding. All in agreement with DNR and continued supportive care. More time and opportunity to improve. Will plan CT head in am. If this matches clinical exam for anoxic injury then family likely to lean towards withdrawal in coming days. Can consider MRI needs, but clinical prognosis more important at this time. Dr. Garber will be taking over service tomorrow allowing them a second opinion as well. Support. time. They expressed understanding. Disposition: ICU; prognosis poor Code Status: DNR Critical Care Time: 30min Frida Hess DO
[2016-10-04] MEDS: Docusate LIQ* 100 MG/10 ML UDC G TUBE SCH (20:47)
[2016-10-05] MEDS: Propofol* 100 ML IV SCH ×7 (01:27→20:56)
[2016-10-05] MEDS: Hydrocortisone INJ* 100 MG VIAL IV SCH ×3 (01:50→18:23)
[2016-10-05] MEDS: Chlorhexidine MOUTHWASH 0.12%* 15 ML UDC TOPICAL SCH ×6 (04:10→23:04)
[2016-10-05] MEDS: Norepinephrine 16MCG/ML IVPRE* 4,000 MCG/250 ML BAG IV SCH ×2 (05:41→12:04)
[2016-10-05 05:47] LABS: Hematocrit 36 % (35-47); Hemoglobin 11.5 g/dl (12.0-16.0); Mean Corpuscular HGB Conc 32 g/dl (31-36); Mean Corpuscular Hemoglobin 30 pg (27-31); Mean Corpuscular Volume 94 fL (80-97); Mean Platelet Volume 9 um3 (7.4-10.4); Red Blood Count 3.81 10^6/ul (4.0-5.4); Red Cell Distribution Width 16 % (10.5-15); White Blood Count 17.5 10^3/ul (3.5-10.8)
[2016-10-05] MEDS: Insulin LISPRO* 1 UNITS UNIT SUBCUT SCH ×3 (05:47→18:23)
[2016-10-05] MEDS: Heparin VIAL(*) 5000 UNITS/ML VIAL (FIVE THOUSAND) SUBCUT SCH ×3 (05:48→22:40)
[2016-10-05 06:02] LABS: BUN/Creatinine Ratio 18.8 (8-20); Calcium 7.9 mg/dL (8.6-10.3); EGFR African American 58.2 (>60); EGFR Non-African American 45.2 (>60); Phosphorus 4.7 mg/dL (2.5-5.0)
[2016-10-05 06:03] LABS: Potassium 4.4 mmol/L (3.5-5.0)
--- NOTE | 2016-10-05 07:58 | RAD ---
Indication: Cardiac arrest, respiratory failure. Single frontal view of the chest performed at 0610 hours was reviewed. Comparison is made with previous exam dated October 03, 2016. ET tube is at the level aortic arch. Nasogastric tube is in place. Cardiomegaly with interstitial edema. IMPRESSION: ET TUBE IN APPROPRIATE LOCATION. INTERSTITIAL EDEMA IS NOTED.
--- NOTE | 2016-10-05 08:55 | RAD ---
HISTORY: Cardiac arrest, anoxic injury COMPARISONS: None TECHNIQUE: Multiple contiguous axial CT scans were obtained of the head without intravenous contrast. FINDINGS: HEMORRHAGE/INFARCT: There is diffuse loss of fermin-white differentiation concerning for diffuse anoxic injury. There is no hemorrhage MASSES/SHIFT: There is no mass or shift. EXTRA-AXIAL SPACES: There are no extra-axial fluid collections. SULCI AND VENTRICLES: The sulci and ventricles are normal in size and position for the patient's stated age. CEREBRUM: As noted above, there is diffuse loss of fermin-white differentiation. BRAINSTEM: There are no focal parenchymal abnormalities. CEREBELLUM: There are no focal parenchymal abnormalities. VESSELS: An aneurysm clip is noted in the region of the anterior descending artery. PARANASAL SINUSES: There are-fluid levels within the maxillary sinuses and sphenoid sinus ORBITS: The orbits are unremarkable. BONES AND SOFT TISSUE: There is postsurgical change to the skull OTHER: None IMPRESSION: 1. DIFFUSE LOSS OF FERMIN-WHITE DIFFERENTIATION CONCERNING FOR DIFFUSE ANOXIC INJURY. RECOMMEND CONTINUED ATTENTION FOLLOW-UP 2. AIR-FLUID LEVELS WITHIN THE MAXILLARY SINUSES AND SPHENOID SINUS. IN THE CORRECT CLINICAL SETTING THIS MAY REPRESENT ACUTE SINUSITIS.
[2016-10-05] MEDS: Docusate LIQ* 100 MG/10 ML UDC G TUBE SCH ×2 (09:43→20:36)
[2016-10-05] MEDS: Lansoprazole susp Kit 3 MG/ML (30 MG = 10 ML) G TUBE SCH (09:55)
[2016-10-05] MEDS: fentaNYL PCA* 20 ML INFUSION SCH (09:56)
--- NOTE | 2016-10-05 10:54 | PN ---
Critical Care Services: [facility] note DATE: 10/05/16 TIME: 10:30 am Pt seen and examined at bedside. Overnight events noted. Pt continues to have myoclonus episodes. Levophed drip increased to 12 last night. PMHx, Social Hx, FHx, reviewed and unchanged since admission H&P REVIEW OF SYSTEMS: Limited due to intubated status MEDICATIONS: Reviewed and as per records. Vital Signs: Temp Pulse Resp BP SpO2 FiO2 96.6 F 52 13 135/69 99 40 10/05/16 09:00 10/05/16 09:00 10/05/16 09:56 10/05/16 09:00 10/05/16 09:00 10/05 03:46 Physical Exam: Neuro:On Fentanyl and Propofol, involuntary movements and myoclonus noted HEENT:Pupils minimally responsive, ETT in place Lungs:Coarse breath sounds, distant b/l, no wheeze Cardiac: Regular, S1, S2+ Abdomen:Obese, bowel sounds diminished Extremities:Edematous, no cyanosis Access: Right femoral (day#3), Lt Femoral A-line and CVC (day#3) Fluid Balance (Past 24 Hours): I= 3616 O= 2168 Net 1448 Intake & Output 10/03/16 10/04/16 10/05/16 10/06/16 06:59 06:59 06:59 06:59 Intake Total 6900 4479 3616.5 Output Total 725 1390 2168 Balance 6175 3089 1448.5 Weight 259 lb 4.218 oz 266 lb 1.567 oz 271 lb 2.697 oz Intake: IV Fluids 3209 3220 1193.5 NS (0.9%) 3209 3069 274 NS KVO with meds 60 680 NS with fent 91 239.5 IVPB 283 650 NS (0.9%) 121 220 NS KVO with meds 162 430 Medicated IV 3691 896 1187 CC - Amiodarone 100 CC - Norepinephrine/ 1334 531 480 Levophed CC - Propofol/Diprivan 232 365 707 GEN - Albumin 1925 GEN - Magnesium 100 Tube Feeding 436 Tube Feeding Flush Amount 80 150 Output: NG Tube Drainage Amount 150 Rivera 725 1240 2168 Tube Feeding Residual 0 Amount Wasted Labs: Laboratory Results - last 24 hr 10/04/16 10/04/1610/04/17 12:38 18:33 18:37 WBC RBC Hgb Hct MCV MCH MCHC RDW Plt Count MPV Sodium Potassium Chloride Carbon Dioxide Anion Gap BUN Creatinine Est GFR ( Amer) Est GFR (Non-Af Amer) BUN/Creatinine Ratio Glucose POC Glucose (mg/dL) 184 H 39 L* 169 H Calcium Phosphorus Magnesium 10/04/16 10/05/16 10/05/16 23:38 05:33 05:35 WBC RBC Hgb Hct MCV MCH MCHC RDW Plt Count MPV Sodium 143 Potassium 4.4 Chloride 114 H Carbon Dioxide 19 L Anion Gap 10 BUN 22 Creatinine 1.17 H Est GFR ( Amer) 58.2 Est GFR (Non-Af Amer) 45.2 BUN/Creatinine Ratio 18.8 Glucose 143 H POC Glucose (mg/dL) 180 H 160 H Calcium 7.9 L Phosphorus 4.7 Magnesium 2.0 10/05/16 05:35 WBC 17.5 H RBC 3.81 L Hgb 11.5 L Hct 36 MCV 94 MCH 30 MCHC 32 RDW 16 H Plt Count 213 MPV 9 Sodium Potassium Chloride Carbon Dioxide Anion Gap BUN Creatinine Est GFR ( Amer) Est GFR (Non-Af Amer) BUN/Creatinine Ratio Glucose POC Glucose (mg/dL) Calcium Phosphorus Magnesium Studies: CXR: Reviewed: Mild interstitial congestion, ETT and OGT in optimal position Nutrition: Glucerna tube feeds, goal adjusted to suit being on Propofol Impression: 76 y o f with h/o CVA brought in by ambulance after chocking while eating steak at restaurant, pt was pulseless for atleast 5 min prior to EMS arrival and unsuccessful Heimlich. She was intubated in ED, received amiodarone for A.fib and was started on Levophed for hypotension. Hypothermia protocol was initiated for witnessed cardiac arrest, she was subsequently warmed starting 2 am last night. She is normothermic now, needing lovophed and still having myoclonic episodes with any propofol taper. Plan: Neuro: Currently on Propofol and Fentanyl , will attempt to hold drips to be able to assess her neurological status better. She does appear to having worsening myoclonus with attempt at taper of sedation. CT brain from this am suggestive of cerebral edema. EEG ordered and is pending to evaluate seizure activity. She is on antiepilepty meds. Neurology consultation requested to assist in determination of prognosis from neurological perspective. Wait and watch to see if she would have meaningful neurological recovery however not very optimistic. Cardiovascular: On Levophed , c/w IV fluids. Not in Afib , rate controlled currently Respiratory: On APRV, CXR appears to show mild congestion, has received Lasix yesterday, will probably administer dose today. FiO2 requirements are reasonable. Gastrointestinal: Trophic tube feeds started, tolerating well. No signs of ileus Renal/Metabolic: Renal out put 10-15cc/hr, slight bump in creatinine this am. Will monitor closely, no electrolyte abnormalities. Is on OVF, has anasarca. Will monitor fluid status closely and dose Lasix as needed. Infectious Disease: No active issues, no need for abx, leukocytosis likely reactive. Hematology: Leucocytosis likely reactive, no reason to suspect infection. Anemia - dilutional, monitor closely Endocrine: Monitor blood sugars q 6hrs Musculoskeletal: Bedrest currently. Frequent turning and positioning Psych/Social: Discussed with family, they are aware of prognosis , to decide regarding terminal extubation if no signs of neurological recovery. Supportive and preventative care as ordered. SUP: ppi VTE prophylaxis: Heparin Rivera catheter given critical illness, monitoring needs for accurate assessment of KATARINA and KDIGO criteria for critically ill patients and to avoid potential harms of urinary retention, skin breakdown/ulcers. Lines: Rt femoral line, day#3, to be removed today. :Lt femoral A-line and CVC to be continued for now, I dont see any need to replace with PICC line since she would be terminally extubated if she doesnot improve over the weekend. Disposition: ICU Code Status: DNR Critical Care Time: 60min total, greater than 50% with [id number] discussion with family
--- NOTE | 2016-10-05 21:05 | CONS ---
CONSULTATION REPORT: DATE OF CONSULTATION/DICTATION: 10/05/16 PATIENT OF: Dr. Garber. HISTORY OF PRESENT ILLNESS: I was asked by Dr. Garber to evaluate Carla Chu for her encephalopathy following cardiopulmonary arrest. She presented on the evening of 10/02/16, having took food with Heimlich maneuver attempted prior to EMS arrival. There was a pulse, but the patient arrived unresponsive with asystole. The patient was down about 5 minutes prior to initiation of basic advanced life support. When she arrived in the ER, she was unresponsive and was intubated and went into atrial fibrillation, became hypotensive, receiving both chemical resuscitation. She had myoclonic jerking on presentation to the ICU, which responded to Versed and shortly after arrival in the ICU, she went into asystole. After 7 to 8 minutes later, she had return of spontaneous circulation. She has been unresponsive since admission but having myoclonic jerks at times depending on what her propofol level is. She has also been maintained on Keppra. PAST MEDICAL HISTORY: She has past history of cerebral aneurysm, status post clipping years ago and stroke with residual left hemiparesis. She has hypertension. PAST SURGICAL HISTORY: Surgery was for the aneurysm. CURRENT MEDICATIONS: Include: 1. Insulin with sliding scale. 2. Solu-Cortef 50 mg IV q.8 hours. 3. Fentanyl 20 mL at 0.5 mL's per hour. 4. Fentanyl p.r.n. pain. 5. Docusate 100 mg b.i.d. 6. Keppra 1000 mg q.8 hours. 7. Versed p.r.n. agitation. 8. Levophed 20 mcg/minute. 9. Zofran p.r.n. nausea. 10. Propofol 10 mcg/kg/minute currently. 11. Valproic acid 500 q.8 hours. ALLERGIES: She has no known drug allergies. REVIEW OF SYSTEMS: Unobtainable from the patient. PHYSICAL EXAMINATION: On exam, temperature 96.8, pulse is 52, respirations 12, blood pressure 124/59. She was on a propofol drip. It has been addressed and is being weaned when I saw her, she was at that point unresponsive to noxious stimuli in all 4 extremities and had eyes closed. Pupils too were unreactive. Negative corneals. Negative Doll's. She had no gag or cough on deep suction per nurse. DIAGNOSTIC DATA/LABORATORY DATA: Her CT scan was reviewed and did show loss of fermin-white matter differentiation diffusely. markings were present, but I thought may be diminished but did not have a CT scan to compare to. Her EEG is being read by Dr. Velasquez, but shows frequent epileptiform discharges. Background was suppressed as the patient was on propofol on the time of the EEG. Labs included an initial blood gas shortly at 8:18 of 7.16, pCO2 60, pO2 64, bicarb 18.4 and this was on a respirator. Recent white count 17.5, hematocrit 36. Normal INR and PTT except for most recently on July 04, 1.18 INR. Chemistries today show a normal BMP other than a chloride of 114, bicarb of 19, creatinine 1.17, glucose has been 143, most recently calcium 7.9. Total protein most recently on the was 5.0. ALT 54 , AST 51. Troponin on the was 0.32. Lactic acid was initially 8.1. TSH 6.19, T4 of 5.12 upon admission. IMPRESSION: Carla has severe encephalopathy marked by myoclonic jerks and periodic epileptiform discharges on EEG as well as cerebral edema. She is now approaching 3 days following her hypoxic ischemic insult and this picture of severe encephalopathy is consistent with her degree of initial asphyxia and prognosis is grim for survival and if she survives, she is likely to have severe intellectual and motor impairment as I call in to Dr. Garber to discuss further. Of note, her exam is clouded by her propofol, but it is likely as propofol is decreased, her myoclonic jerks will be more severe and hard to manage. [id number]/[facility] #: [id number] [facility]
[2016-10-06] MEDS: Insulin LISPRO* 1 UNITS UNIT SUBCUT SCH ×4 (00:03→17:40)
[2016-10-06] MEDS: Norepinephrine 16MCG/ML IVPRE* 4,000 MCG/250 ML BAG IV SCH ×2 (01:00→11:57)
[2016-10-06] MEDS: Chlorhexidine MOUTHWASH 0.12%* 15 ML UDC TOPICAL SCH ×6 (02:52→23:36)
[2016-10-06] MEDS: Hydrocortisone INJ* 100 MG VIAL IV SCH ×3 (02:53→17:39)
[2016-10-06] MEDS: Propofol* 100 ML IV SCH ×6 (03:05→19:41)
[2016-10-06] MEDS: fentaNYL PCA* 20 ML INFUSION SCH ×2 (03:17→22:06)
[2016-10-06] MEDS: Heparin VIAL(*) 5000 UNITS/ML VIAL (FIVE THOUSAND) SUBCUT SCH ×3 (05:27→21:21)
[2016-10-06 07:49] LABS: Resp Rate 13; Ventilator Volume APRC
[2016-10-06 07:52] LABS: Hematocrit 32 % (35-47); Hemoglobin 10.1 g/dl (12.0-16.0); Mean Corpuscular HGB Conc 32 g/dl (31-36); Mean Corpuscular Hemoglobin 30 pg (27-31); Mean Corpuscular Volume 95 fL (80-97); Mean Platelet Volume 9 um3 (7.4-10.4); Red Blood Count 3.37 10^6/ul (4.0-5.4); Red Cell Distribution Width 16 % (10.5-15); White Blood Count 11.7 10^3/ul (3.5-10.8)
[2016-10-06 07:54] LABS: PCO2 Arterial 48 mmHg (35-45)
[2016-10-06 08:05] LABS: BUN/Creatinine Ratio 30.3 (8-20); Calcium 8.4 mg/dL (8.6-10.3); EGFR Non-African American 44.3 (>60); Potassium 3.9 mmol/L (3.5-5.0)
[2016-10-06] MEDS: Docusate LIQ* 100 MG/10 ML UDC G TUBE SCH ×2 (09:17→20:21)
--- NOTE | 2016-10-06 09:17 | PN ---
Critical Care Services: [facility] progress note Date of service: 10/06/16, Time: 9:11 am Pt was seen and examined at bedside. No acute events o/n. Pt continues to need Levophed. UO remains marginal. Edema is improved, appears to be more on dry side this am. Continues to be on propofol and fentanyl. Tolerating feeds well. PMHx, Social Hx, FHx reviewed and unchanged from admission Meds reviewed Vital signs, CXR, labs reviewed Vital Signs: Temp Pulse Resp BP SpO2 FiO2 97.5 F 57 13 102/51 98 40 10/06/16 09:01 10/06/16 09:01 10/06/16 09:00 10/06/16 09:01 10/06/16 09:01 10/06 03:25 Physical Exam: Neuro:Sedated on Fentanyl and Propofol, no myoclonus noted this am HEENT:Pupils minimally responsive, 2mm on rt and pear shaped on left, ETT in place, 21 at lip level Lungs:Coarse breath sounds, no wheeze, diminished at bases Cardiac: Regular, S1, S2+ Abdomen:Obese, bowel sounds diminished, not distended Extremities: Less edematous today, no cyanosis Access: Right femoral removed 10/05/16, Lt Femoral A-line and CVC (day#4) Fluid Balance (Past 24 Hours): M=3875 O= 575 Net -2486 Intake & Output 10/04/16 10/05/16 10/06/16 10/07/16 06:59 06:59 06:59 06:59 Intake Total 4479 3616.5 3061.5 Output Total 1390 2168 575 Balance 3089 1448.5 2486.5 Weight 266 lb 1.567 oz 271 lb 2.697 oz 274 lb 4.081 oz Intake: IV Fluids 3220 1193.5 1091.5 NS (0.9%) 3069 274 190 NS KVO with meds 60 680 668.2 NS with fent 91 239.5 233.3 IVPB 283 650 NS (0.9%) 121 220 NS KVO with meds 162 430 Medicated IV 896 1187 1300 CC - Norepinephrine/ 531 480 686 Levophed CC - Propofol/Diprivan 365 707 614 Tube Feeding 436 515 Tube Feeding Flush Amount 80 150 80 NG Tube Irrigate Amount 75 Output: NG Tube Drainage Amount 150 Urine 45 Rivera 1240 2168 530 Tube Feeding Residual 0 Amount Wasted Labs: Laboratory Results - last 24 hr 10/05/16 10/05/16 10/05/16 12:12 18:10 23:49 WBC RBC Hgb Hct MCV MCH MCHC RDW Plt Count MPV Patient Temperature ABG pH ABG pCO2 ABG pO2 ABG HCO3 ABG O2 Saturation ABG Base Excess Respiration Rate Ventilator Type Inspiratory Time PEEP Pressure Support Pressure Control EPAP IPAP BiPAP Sodium Potassium Chloride Carbon Dioxide Anion Gap BUN Creatinine Est GFR ( Amer) Est GFR (Non-Af Amer) BUN/Creatinine Ratio Glucose POC Glucose (mg/dL) 152 H 150 H 171 H Calcium 10/06/16 10/06/16 10/06/16 05:35 07:30 07:30 WBC RBC Hgb Hct MCV MCH MCHC RDW Plt Count MPV Patient Temperature Not Reportable ABG pH 7.24 L ABG pCO2 48 H ABG pO2 89 ABG HCO3 19.7 ABG O2 Saturation 98.3 H ABG Base Excess -6.7 L Respiration Rate 13 Ventilator Type Aprc Inspiratory Time Not Reportable PEEP Not Reportable Pressure Support Not Reportable Pressure Control Not Reportable EPAP Not Reportable IPAP Not Reportable BiPAP Not Reportable Sodium 143 Potassium 3.9 Chloride 115 H Carbon Dioxide 21 L Anion Gap 7 BUN 36 H Creatinine 1.19 H Est GFR ( Amer) 57.0 Est GFR (Non-Af Amer) 44.3 BUN/Creatinine Ratio 30.3 H Glucose 147 H POC Glucose (mg/dL) 168 H Calcium 8.4 L 10/06/16 07:30 WBC 11.7 H RBC 3.37 L Hgb 10.1 L Hct 32 L MCV 95 MCH 30 MCHC 32 RDW 16 H Plt Count 157 MPV 9 Patient Temperature ABG pH ABG pCO2 ABG pO2 ABG HCO3 ABG O2 Saturation ABG Base Excess Respiration Rate Ventilator Type Inspiratory Time PEEP Pressure Support Pressure Control EPAP IPAP BiPAP Sodium Potassium Chloride Carbon Dioxide Anion Gap BUN Creatinine Est GFR ( Amer) Est GFR (Non-Af Amer) BUN/Creatinine Ratio Glucose POC Glucose (mg/dL) Calcium Studies: CXR: reviewed, personally- ETT and OGT in place, vascular congestion noted Nutrition: On Glucerna, goal of 40 while on Propofol, no significantly elevated residual Impression: 76 y o f with h/o CVA brought in by ambulance after chocking while eating steak at restaurant, pt was pulseless for atleast 5 min prior to EMS arrival and unsuccessful Heimlich. She was intubated in ED, received amiodarone for A.fib and was started on Levophed for hypotension. Hypothermia protocol was initiated for witnessed cardiac arrest, she was subsequently warmed starting 2 am 10/05/16. She is normothermic now, needing lovophed. Plan: Neuro: Currently on Propofol and Fentanyl , will attempt to hold drips to be able to assess her neurological status better. She didnot tolerate yesterday, had seizure spikes noted on EEG. On antiseiure meds. CT brain 10/06/16 suggestive of cerebral edema. Neurology consultation appreciated. Will hold sedation today to be able to do good neuro exam Cardiovascular: On Levophed , c/w IV fluids. Not in Afib, was briefly in A.fib in ED , rate controlled currently Respiratory: On APRV, CXR appears to show mild congestion, ETT in place. ABG reviewed, resp acidosis noted, will switch from APRV to CMV, rate of 16, will rpt ABG in few hours Gastrointestinal: Trophic tube feeds started, tolerating well. No signs of ileus Renal/Metabolic: Renal out put 10-15cc/hr, creatinine trending up, will increase IVF rate, she appears on pearl glue drier end this am. Will monitor closely, no electrolyte abnormalities. Will monitor fluid status closely and dose Lasix as needed. Infectious Disease: No active issues, no need for abx, leukocytosis likely reactive, trending down. Hematology: Leucocytosis likely reactive, no reason to suspect infection. Anemia - dilutional, stable, monitor closely Endocrine: Monitor blood sugars q 6hrs, no need for insulin supplementation currently Musculoskeletal: Bedrest currently. Frequent turning and positioning to prevent skin breakdown Psych/Social: Discussed with family, they are aware of prognosis , to decide regarding terminal extubation if no signs of neurological recovery. Will be able to attain at conclusion by tomorrow Supportive and preventative care as ordered. SUP: PPI VTE prophylaxis: Heparin Rivera catheter given critical illness, monitoring needs for accurate assessment of KATARINA and KDIGO criteria for critically ill patients and to avoid potential harms of urinary retention, skin breakdown/ulcers. Lines: Rt femoral line, d/c ed 10/05/16. :Lt femoral A-line and CVC to be continued for now, I dont see any need to replace with PICC line since she would be terminally extubated if she doesnot improve over the weekend. She still continues to need CVC access for multiple drips and pressors. Disposition: ICU Code Status: DNR Critical Care Time: 45min aggregate
[2016-10-06] MEDS: Lansoprazole susp Kit 3 MG/ML (30 MG = 10 ML) G TUBE SCH (09:18)
[2016-10-06] MEDS: NS 0.9% 1000 ML* 1,000 ML IV SCH (10:00)
--- NOTE | 2016-10-06 11:28 | RAD ---
Indication: ET tube confirmation. Single frontal view of the chest performed at 09 23 was reviewed. Comparison is made with previous exam dated October 05, 2016. No mediastinal shift is noted. Heart is of normal size and configuration. Lung saul appear clear. Bibasilar atelectasis is noted. ET tube is at the level of the aortic arch. IMPRESSION: NO ACTIVE CARDIOPULMONARY DISEASE IS NOTED. ET TUBE IS IN APPROPRIATE LOCATION.
[2016-10-06] MEDS ORDERED: Albuterol/Ipratropium NEB.SOL* Albuterol 2.5 MG/Ipratropium 0.5 MG 3 ML INH PRN (11:33)
[2016-10-07] MEDS: Insulin LISPRO* 1 UNITS UNIT SUBCUT SCH ×3 (00:56→14:01)
[2016-10-07] MEDS: Hydrocortisone INJ* 100 MG VIAL IV SCH ×2 (01:32→11:09)
[2016-10-07] MEDS: Propofol* 100 ML IV SCH ×5 (01:56→14:50)
[2016-10-07] MEDS: Norepinephrine 16MCG/ML IVPRE* 4,000 MCG/250 ML BAG IV SCH (03:03)
[2016-10-07] MEDS: Chlorhexidine MOUTHWASH 0.12%* 15 ML UDC TOPICAL SCH ×3 (03:03→11:09)
[2016-10-07] MEDS: Heparin VIAL(*) 5000 UNITS/ML VIAL (FIVE THOUSAND) SUBCUT SCH ×2 (05:14→14:07)
[2016-10-07 07:48] LABS: FIO2 40
[2016-10-07 07:53] LABS: PCO2 Arterial 56 mmHg (35-45)
[2016-10-07] MEDS: Docusate LIQ* 100 MG/10 ML UDC G TUBE SCH (08:44)
[2016-10-07] MEDS: Lansoprazole susp Kit 3 MG/ML (30 MG = 10 ML) G TUBE SCH (08:45)
[2016-10-07 09:25] LABS: Hematocrit 30 % (35-47); Hemoglobin 9.5 g/dl (12.0-16.0); Mean Corpuscular HGB Conc 32 g/dl (31-36); Mean Corpuscular Hemoglobin 30 pg (27-31); Mean Corpuscular Volume 93 fL (80-97); Mean Platelet Volume 9 um3 (7.4-10.4); Red Cell Distribution Width 16 % (10.5-15); White Blood Count 7.5 10^3/ul (3.5-10.8)
[2016-10-07 09:50] LABS: BUN/Creatinine Ratio 39.2 (8-20); Calcium 8.6 mg/dL (8.6-10.3); EGFR African American 56.5 (>60); EGFR Non-African American 43.9 (>60)
--- NOTE | 2016-10-07 11:08 | RAD ---
Indication: ET tube confirmation. Single frontal view of the chest performed at 0750 hours was reviewed. Comparison is made with previous exam dated October 06, 2016. Cardiomegaly is noted. ET tube is at the level of T3-T4. Lung saul demonstrate mild interstitial prominence. IMPRESSION: ET TUBE IN APPROPRIATE LOCATION. NASOGASTRIC TUBE IS BELOW THE DIAPHRAGM.
[2016-10-07] MEDS: NS 0.9% 1000 ML* 1,000 ML IV SCH (11:11)
--- NOTE | 2016-10-07 12:52 | PN ---
Critical Care Services: Date of service: 10/07/16, Time:12:40 pm Pt was seen and examined at bedside. No acute events o/n. Pt continues to need Levophed, was able to titrate last night, had to be increased again this am. UO remains marginal. Edema is improved slightly however still has significant anasarca. Continues to be on propofol and fentanyl. Tolerating feeds well. Is needing full vent support, settings adjusted for hypercapnia. PMHx, Social Hx, FHx reviewed and unchanged from admission Meds reviewed Vital signs, CXR, labs reviewed Vital Signs: Temp Pulse Resp BP SpO2 FiO2 97.3 F 58 15 95/51 99 40 10/07/16 12:01 10/07/16 12:01 10/07/16 12:00 10/07/16 12:01 10/07/16 12:01 10/07 08:12 Physical Exam: Neuro: On Fentanyl and Propofol, involuntary movements and myoclonus noted HEENT: Pupils minimally responsive, ETT in place Cardiovascular: Regular, S1, S2+ Respiratory: Coarse breath sounds, distant b/l, no wheeze Abdomen: Obese, bowel sounds diminished Extremities: Edematous, no cyanosis Access: Lt Femoral A-line and CVC (day#5) Will leave for lines for now as she needs access before decision could be made tomorrow after family meeting. Fluid Balance (Past 24 Hours): I= 4303 O= 680 Net -3623 Intake & Output 10/05/16 10/06/16 10/07/16 10/08/16 06:59 06:59 06:59 06:59 Intake Total 3616.5 3061.5 4303.8 509 Output Total 2168 575 680 580 Balance 1448.5 2486.5 3623.8 -71 Weight 271 lb 2.697 oz 274 lb 4.081 oz 293 lb 3.437 oz Intake: IV Fluids 1193.5 1091.5 2374.8 NS (0.9%) 274 190 987 NS KVO with meds 680 668.2 845 NS to Maintain IV Patency 301 NS with fent 239.5 233.3 241.8 IVPB 650 NS (0.9%) 220 NS KVO with meds 430 Medicated IV 1187 1300 781 CC - Norepinephrine/ 480 686 238 Levophed CC - Propofol/Diprivan 707 614 543 Tube Feeding 945 885 7376 489 Tube Feeding Flush Amount 150 80 100 20 NG Tube Irrigate Amount 75 Output: Urine 45 Rivera 2168 530 680 180 Tube Feeding Residual 0 400 Amount Wasted Labs: Laboratory Results - last 24 hr 10/06/16 10/06/16 10/07/16 11:49 17:33 00:24 WBC RBC Hgb Hct MCV MCH MCHC RDW Plt Count MPV Patient Temperature ABG pH ABG pCO2 ABG pO2 ABG HCO3 ABG O2 Saturation ABG Base Excess Respiration Rate O2 Delivery Device Ventilator Type Vent Mode FiO2 Inspiratory Time PEEP Pressure Support Pressure Control EPAP IPAP BiPAP Sodium Potassium Chloride Carbon Dioxide Anion Gap BUN Creatinine Est GFR ( Amer) Est GFR (Non-Af Amer) BUN/Creatinine Ratio Glucose POC Glucose (mg/dL) 149 H 155 H 123 H Calcium 10/07/16 10/07/16 10/07/16 05:52 07:40 09:00 WBC RBC Hgb Hct MCV MCH MCHC RDW Plt Count MPV Patient Temperature Not Reportable ABG pH 7.17 L* ABG pCO2 56 H ABG pO2 98 ABG HCO3 18.7 L ABG O2 Saturation 98.9 H ABG Base Excess -8.0 L Respiration Rate Not Reportable O2 Delivery Device vent Ventilator Type Not Reportable Vent Mode aprv FiO2 40 Inspiratory Time Not Reportable PEEP Not Reportable Pressure Support Not Reportable Pressure Control Not Reportable EPAP Not Reportable IPAP Not Reportable BiPAP Not Reportable Sodium 144 Potassium 4.0 Chloride 115 H Carbon Dioxide 22 Anion Gap 7 BUN 47 H Creatinine 1.20 H Est GFR ( Amer) 56.5 Est GFR (Non-Af Amer) 43.9 BUN/Creatinine Ratio 39.2 H Glucose 121 H POC Glucose (mg/dL) 132 H Calcium 8.6 10/07/16 09:00 WBC 7.5 RBC 3.20 L Hgb 9.5 L Hct 30 L MCV 93 MCH 30 MCHC 32 RDW 16 H Plt Count 151 MPV 9 Patient Temperature ABG pH ABG pCO2 ABG pO2 ABG HCO3 ABG O2 Saturation ABG Base Excess Respiration Rate O2 Delivery Device Ventilator Type Vent Mode FiO2 Inspiratory Time PEEP Pressure Support Pressure Control EPAP IPAP BiPAP Sodium Potassium Chloride Carbon Dioxide Anion Gap BUN Creatinine Est GFR ( Amer) Est GFR (Non-Af Amer) BUN/Creatinine Ratio Glucose POC Glucose (mg/dL) Calcium Studies: CXR 10/07/16- Reviewed, ETT in place, no change from prior CXR Nutrition: Tube feeds, more residuals today Impression: 76 y o f with h/o CVA brought in by ambulance after chocking while eating steak at restaurant, pt was pulseless for atleast 5 min prior to EMS arrival and unsuccessful Heimlich. She was intubated in ED, received amiodarone for A.fib and was started on Levophed for hypotension with no significant improvent since admission may be going downhill today. 1.Hypoxic and hypercapnic resp failure after aspiration event 2.Hypotension likely from neurological cause 3.Hypoxic encephalopathy 4.Oliguria likely from 3 rd spacing Plan: Neuro: Currently on Propofol and Fentanyl , continues to have significant myoclonus suggestive of hypoxic insult with attempt to hold sedation. On antiseiure meds. CT brain 10/06/16 suggestive of cerebral edema. Appears that there is less hope of any meaningful recovery of neurological status. Cardiovascular: On Levophed , c/w IV fluids. Not in Afib, was briefly in A.fib in ED , rate controlled currently Respiratory: On APRV, CXR appears to show mild congestion, ETT in place. ABG reviewed, resp acidosis noted, APRV settings are being adjusted, P high was increased, End tidals appear to be acceptable, will rpt ABG later today Gastrointestinal: Trophic tube feeds started, has more residulas today, feeds on hold for now Renal/Metabolic: Renal out put 10-15cc/hr, creatinine trending up, c/w IVF rate. Will monitor closely, no electrolyte abnormalities. Will monitor fluid status closely and dose Lasix as needed. Infectious Disease: No active issues, no need for abx, leukocytosis likely reactive, normalizing. Hematology: Leucocytosis likely reactive, no reason to suspect infection. Anemia - dilutional and decreased marrow functioning from current illness, stable, monitor closely Endocrine: Monitor blood sugars q 6hrs, no need for insulin supplementation currently Musculoskeletal: Bedrest currently. Frequent turning and positioning to prevent skin breakdown Psych/Social: Discussed with family, they are aware of prognosis , will probably lean towards terminal extubation today. Supportive and preventative care as ordered. SUP: PPI VTE prophylaxis: Heparin Rivera catheter given critical illness, monitoring needs for accurate assessment of KATARINA and KDIGO criteria for critically ill patients and to avoid potential harms of urinary retention, skin breakdown/ulcers. Lines: Lt femoral A-line and CVC to be continued for now, I dont see any need to replace with PICC line since she would be terminally extubated likely today/ tomorrow. She still continues to need CVC access for multiple drips and pressors. Disposition: ICU Code Status: DNR Critical Care Time: 30 min with pt including exam and chart review and 30 min with family meeting to discuss prognosis and advance directives. Patients daughter understands prognosis is grim, pts still in denial and is hopeful of her recovery. Will meet again with palliative care today as all her family have arrived.
[2016-10-07 14:10] VITALS: BP 107/64
[2016-10-07] MEDS ORDERED: Morphine INJ* 4 MG/ML 1 ML SYRINGE IV PRN (14:40)
--- NOTE | 2016-10-07 14:54 | PN ---
Progress Note - Progress Note Date of Service: 10/07/16 - Critical care update Note: Family discussion held with help of palliative care. Explained poor prognosis and hope for meaningful recovery of brain function. Family decided towards terminal extubation. Appropriate orders were done. Waiting for [employer] to arrive and then will terminally extubate pt and transition to comfort care. Morphine, O2 ordered. Will d/c other meds and drips except for Fentanyl.
[2016-10-07] MEDS ORDERED: Morphine INJ* 2 MG/ML 1 ML SYRINGE IV STA (15:58)
--- NOTE | 2016-10-07 21:38 | DS ---
CC: Dr. Gibson, [facility] * DISCHARGE SUMMARY/ SUMMARY: DATE OF ADMISSION: 10/02/16 DATE OF DISCHARGE/EXPIRATION: 10/07/16 TIME OF EXPIRATION: 4:10 p.m. CAUSE OF : Cardiopulmonary arrest after aspiration episode. DISCHARGE DIAGNOSES: 1. Cardiopulmonary arrest after terminal extubation 2. Hypoxic encephalopathy. 3. Aspiration episode after choking while eating at a restaurant. PRIMARY CARE PHYSICIAN: Dr. Gibson at [facility]. BRIEF HOSPITALIZATION SUMMARY: Please refer to admission H and P, progress note from today for further details. In summary, the patient is a 76-year-old obese female with history of cerebral aneurysm, status post clipping years ago at [place], TIA, CVA with residual left hemiparesthesia, hypertension, who was brought in by EMS after the patient had choking episode at a restaurant. The patient failed Heimlich, passed out. Upon EMS arrival, CPR was initiated, oral airway was placed. In the ED, the patient noted to have myoclonus and was in coma. The patient was successfully intubated in the ED, placed on Levophed, was in AFib for a brief period, subsequently had PEA arrest with return of spontaneous circulation in 8 minutes with ACLS. The patient was being monitored in the ICU after her admission on 10/02/16. She has needed full ventilatory and vasopressor support. The patient noted to have evidence of diffuse cerebral edema on CT brain consistent with hypoxic encephalopathy. The patient also with seizure spikes while on the EEG monitoring. Thereupeutic hypothermia was initiated as per protocol. The patient was also on Levophed support for hypotension. The patient continued to deteriorate further, with no hope for meaningful neurological recovery.Patient was made DNR by family to respect patients wishes. Given her continued decline and no improvement in her neurological state, palliative care was consulted and family meeting was held. Patients daughter and decided on comfort care measures and terminal extubation. The patient was terminally extubated at 3:55 p.m. on 10/07/16. The patient was given on morphine IV after extubation.The patient was pronounced at 4:10 p.m. She comfortably with her family at bedside at around 4:10 p.m. on 10/07/16. Spiritual help offered to family. [id number]/[facility] #: [id number] [facility]
--- NOTE | 2016-10-09 13:03 | EEG ---
ELECTROENCEPHALOGRAPHY: DATE OF STUDY: 10/05/16 - ROOM #ICU-08 ORDERING PHYSICIAN: Vania Garber MD * HISTORY: This is a 76-year-old woman who was admitted on October 02 after a cardiac arrest. She was having dinner at a local restaurant when she began choking. The Heimlich maneuver was attempted, but unsuccessful. She subsequently had cardiac arrest and CPR was started. She was pulseless for 5 minutes prior to EMS arrival. The obstruction was eventually able to be dislodged and she had spontaneous respirations, but then had respiratory decline and was intubated in the emergency department. She then became hypotensive and went into atrial fibrillation and was stated on pressors. Subsequently, she began having myoclonic jerking, which responded to Versed. She then had a cardiac arrest again once in the ICU. She was on hypothermia protocol until 2 a.m. on the morning of the EEG. EEG is requested to evaluate for epileptiform abnormalities. MEDICATIONS: 1. Fentanyl 50 mcg per hour. 2. Levetiracetam 10 mL per hour. 3. Norepinephrine 37.5 mL per hour. 4. Propofol 22.5 mL per hour. 5. Ondansetron. 6. Midazolam. 7. Acetaminophen. 8. Lansoprazole. 9. Colace. 10. Hydrocortisone. 11. Heparin. 12. Valproic acid. 13. Dextrose. 14. Humalog. DESCRIPTION OF PROCEDURE: The background was profoundly abnormal and showed no recognizable anterior to posterior voltage and frequency gradients nor posterior dominant rhythm. The background consisted of generalized, periodic discharges with polyspike and slow wave components. These discharges typically occurred from 2-5 Hz and were relatively continuous throughout the EEG with occasional periods of diffuse voltage suppression, lasting between 1 and 3 seconds. Especially at the beginning of the study, in conjunction with these discharges, the patient exhibited myoclonus of her shoulders as well as her face and in particular her forehead. During periods of diffuse background suppression, there were no abnormal movements. IMPRESSION: This is a profoundly abnormal EEG secondary to the presence of generalized periodic discharges which are associated with myoclonus and interspersed with diffuse suppression of the background. 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 However, it should be noted that the patient remains on sedating medications and so analysis of the background is limited in that sense. [id number]/[facility] #: [id number] ANGELO
== END 2016-10-07 16:10 | disposition expired | DRG 308 ==
LOC: ED 18:10 → ICU 19:23
PROVIDERS: ADMIT Pediatrics; ATTEND Internal Medicine
PROC: 4A10X4Z Monitoring of Central Nervous Electrical Activity, External Approach (ICD-10-PCS; principal; 2016-10-02)
PROC: 5A12012 Performance of Cardiac Output, Single, Manual (ICD-10-PCS; 2016-10-02)
PROC: 5A1955Z Respiratory Ventilation, Greater than 96 Consecutive Hours (ICD-10-PCS; 2016-10-02)
PROC: 0BH17EZ Insertion of Endotracheal Airway into Trachea, Via Natural or Artificial Opening (ICD-10-PCS; 2016-10-02)
PROC: 06HM33Z Insertion of Infusion Device into Right Femoral Vein, Percutaneous Approach (ICD-10-PCS; 2016-10-02)
DX: I48.91 Unspecified atrial fibrillation (principal); R40.20 Unspecified coma; I46.9 Cardiac arrest, cause unspecified; G93.6 Cerebral edema; R57.0 Cardiogenic shock; J96.01 Acute respiratory failure with hypoxia; N17.0 Acute kidney failure with tubular necrosis; I95.9 Hypotension, unspecified; E87.2 Acidosis; G93.1 Anoxic brain damage, not elsewhere classified; Z86.73 Personal history of transient ischemic attack (TIA), and cerebral infarction without residual deficits; I10 Essential (primary) hypertension; Z87.891 Personal history of nicotine dependence; E66.9 Obesity, unspecified; I69.398 Other sequelae of cerebral infarction; R20.2 Paresthesia of skin
CPT/HCPCS: 36415; 36600; 70450; 71010; 80048; 80053; 82330; 82550; 82553; 82803; 83605; 83735; 83874; 83880; 84100; 84436; 84443; 84484; 85025; 85027; 85610; 85730; 87040; 87641; 92950; 93005; 93306; 94002; 94003; 94640; 94760; 95822; A9270-GY; C8929; J0171; J0282; J1644; J1720; J1940; J2060; J2250; J2270; J2704; J3010; J3475; P9045